=== PATIENT | male | born 1970 ===

== ENCOUNTER 2020-12-15 04:54 | Emergency (ER) | payer SELFPAY ==
[~2020-12-15] VITALS: Ht 172.7 cm; Wt 97.5 kg
--- NOTE | 2020-12-15 05:11 | NUR ---
MD Kareem Schneider in room to do MSE.
--- NOTE | 2020-12-15 05:15 | NUR ---
Patient does not wish to proceed with medical care recommended by Dr. Kareem Schneider. Patient given information related to possible complications, up to and including , which could occur as a result of leaving the hospital at this time. Patient verbalizes understanding of risks involved due to leaving against medical advice. Patient has signed AMA form.
== END 2020-12-15 05:15 | disposition left against medical advice (07) ==
LOC: ER 04:57
DX: L02.31 Cutaneous abscess of buttock (principal)
CPT/HCPCS: A4663